=== PATIENT | male | born 1960 | race Caucasian/White ===

== ENCOUNTER 2016-08-21 17:33 | Emergency (ER) | payer SELFPAY | END 2016-08-21 20:18 | disposition left against medical advice (07) | LOC: ER1 17:33 | DX: Z53.21 Procedure and treatment not carried out due to patient leaving prior to being seen by health care provider (principal) ==

== ENCOUNTER 2016-08-22 10:25 | Emergency (ER) | payer SELFPAY | END 2016-08-22 13:10 | disposition home or self-care (01) | LOC: ER1 10:25 | DX: S39.012A Strain of muscle, fascia and tendon of lower back, initial encounter (principal); I10 Essential (primary) hypertension; F17.200 Nicotine dependence, unspecified, uncomplicated; X58.XXXA Exposure to other specified factors, initial encounter; Z79.899 Other long term (current) drug therapy | CPT/HCPCS: 72100; 96372; 99283; J1100; J1885 ==